=== PATIENT | female | born 1970 | race Caucasian/White ===

== ENCOUNTER 2022-06-09 17:58 | Emergency (ER) | payer MEDICARE, BC, SELFPAY ==
[2022-06-09] VITALS (7 sets, daily range): BP systolic 113–119; BP diastolic 69–71; PULSE 63–80; RESP 20; TEMP 37.2; O2SAT 98–100; BMI 23.5
--- NOTE | 2022-06-09 18:34 | ED_ITS ---
HPI - Nausea/Vomiting/Diarrhea General Chief complaint: Nausea/Vomiting Stated complaint: Vomiting and Weak - Crohn's Disease Time Seen by Provider: 06/09/22 18:16 History of Present Illness HPI Narrative: This 51-year-old female comes in reporting vomiting and nausea for the past several days. She has a history of Crohn's and has a ileostomy. She reports there is more liquid output into her ileostomy bag also during this time. She denies having any fevers. She does not feel that she is having a flare-up of her Crohn's disease but rather some kind of stomach flu. She does arrive with normal vital signs. She does not report any blood in the vomit or in her ileostomy bag. She states that she has had symptoms like this in the past and benefited from IV fluids and nausea medicine. Related Data Home Medications Medication Instructions Recorded Confirmed No Known Home Medications 06/09/22 06/09/22 Allergies Allergy/AdvReac Type Severity Reaction Status Date / Time No Known Drug Allergies Allergy Verified 06/09/22 18:25 Review of Systems Status of ROS: Reports: 10 or more systems reviewed and unremarkable except as noted in History and below Narrative: Constitutional: No fevers, no weight gain or loss. Eyes: No discharge. No vision changes. HENT: No congestion, no sore throat, no ear pain. Cardiovascular: No chest pain, no palpitations. Respiratory: No shortness of breath, no wheezes, no cough. Gastrointestinal: Mild abdominal pain. Nausea and vomiting. Genitourinary: No dysuria, no hematuria. Musculoskeletal: Normal range of motion. Skin: No rashes, no pruritis. Neurological: No dizziness, weakness, sensory change, speech change. Endo/Heme/Allergies: No bruising or bleeding. No polydipsia. Pysch: no suicidality, no anxiety, no insomnia. All other systems reviewed and are negative. PFSH PFSH Social History Smoking Status: Never smoker Do you use any of these nicotine containing products: None Second hand tobacco smoke exposure: No How often do you have a drink containing alcohol: monthly or less How many standard drinks containing alcohol do you have on a typical day: 1 or 2 How often do you have six or more drinks on one occasion: Never AUDIT-C Alcohol total score: 1 Non-prescribed substance use: denies use Exam Narrative: Exam Narrative: Constitutional: Well-developed, well-nourished, no acute distress. HEENT: Normocephalic, atraumatic. Neck: Normal range of motion. Nontender. Supple. Heart: Regular. No murmurs. Normal rate. Intact distal pulses. Lungs: Clear to auscultation. No chest discomfort. No wheezes, rhonchi, or rales. Abdomen: Normal bowel sounds. Mild tenderness. No rebound tenderness. Functioning ileostomy. Genitalia: Deferred. Back: No midline tenderness. Normal range of motion. Extremities: Normal range of motion. No injury. Skin: Intact. No rash. Warm. No erythema or pallor. Neurologic: No altered sensation. No weakness. Alert and oriented. Psychiatric: No suicidality. No anxiety or depression. No insomnia. Nursing notes and vitals signs are reviewed. Const: Vital Signs, click to edit/add: Vital Signs - 24 hr 06/09/22 18:22 06/09/22 19:22 06/09/22 19:30 Temperature 98.9 F Pulse Rate 63 63 Pulse Rate [Pulse Oximeter] 74 Respiratory Rate 20 Blood Pressure [Ri t Upper Arm] 119/69 Pulse Oximetry 98 98 99 Oxygen Delivery Me thod Room Air Course Vital Signs Vital signs: Initial Vital Signs Temperature 98.9 F 06/09/22 18:22 Temperature Source Temporal Artery Scan 06/09/22 18:22 Pulse Rate 74 06/09/22 18:22 Respiratory Rate 20 06/09/22 18:22 Blood Pressure 119/69 06/09/22 18:22 Blood Pressure Mean 85 06/09/22 18:22 Blood Pressure Position Semi-Fowlers 06/09/22 18:22 Pulse Oximetry 98 06/09/22 18:22 Oxygen Delivery Method 06/09/22 18:22 Vital Signs Temperature 98.9 F 06/09/22 18:22 Pulse Rate 74 06/09/22 18:22 Respiratory Rate 20 06/09/22 18:22 Blood Pressure 119/69 06/09/22 18:22 Pulse Oximetry 98 06/09/22 18:22 Oxygen Delivery Method 06/09/22 18:22 Temperature 98.9 F 06/09/22 18:22 Pulse Rate 63 06/09/22 19:30 Respiratory Rate 20 06/09/22 18:22 Blood Pressure 119/69 02/18/23 18:22 Pulse Oximetry 99 06/09/22 19:30 Oxygen Delivery Method 06/09/22 18:22 MDM - Nausea/Vomiting/Diarrhea MDM Narrative Medical decision making narrative: This patient states that she thinks she has some kind of viral gastroenteritis or some kind a toxin that she may have eaten. She has had symptoms like this in the past. She is not showing signs or symptoms that mandate CT imaging at this time. An IV was established where she received a L of normal saline and 4 mg of Zofran. This brought relief of her symptoms. She does not complain of any nausea but does feel like she has some reflux symptoms. She did then receive an additional dose of Zofran 4 mg intravenously along with Protonix 40 mg. Lab results returned with normal findings. Most likely this is a gastroenteritis. At the time of discharge the patient appears safe for outpatient management. The treatment plan is reviewed along with written and verbal return precautions. Reasons to return and the importance of close followup were also reviewed. Lab Data Labs: Lab Results 06/09/22 06/09/22 Range/Units 18:43 18:43 WBC 7.76 (4.50-11.00) K/uL RBC 4.44 (4.00-5.20) m/uL Hgb 13.4 (12.0-16.0) gm/dL Hct 40.0 (33.0-51.0) % MCV 90 (80-100) fL MCH 30 (26-34) pg MCHC 34 (32-36) gm/dL RDW Coeff of Rocio 13.6 (11.5-15.5) % Plt Count 309 (140-440) K/uL Neut % (Auto) 82.4 H (42.0-72.0) % Lymph % (Auto) 6.6 L (20-44) % [place] % (Auto) 10.8 (0.0-11.0) % Eos % (Auto) 0.0 (0.0-7.0) % Baso % (Auto) 0.1 (0.0-3.0) % Neut # (Auto) 6.40 (1.7-7.0) K/uL Lymph # (Auto) 0.50 L (0.90-2.90) K/uL [place] # (Auto) 0.80 (0.00-0.90) K/UL Eos # (Auto) 0.00 (0.00-0.50) K/uL Baso # (Auto) 0.01 (0.00-0.30) K/uL Sodium 136 (135-149) mmol/L Potassium 4.1 (3.6-5.1) mmol/L Chloride 106 (96-114) mmol/L Carbon Dioxide 25 (20-32) mmol/L BUN 17 (5-24) mg/dL Creatinine 0.7 (0.5-1.5) mg/dL Estimated Creat Clear 94.54 Estimated GFR 106 ml/min Glucose 108 (60-115) mg/dL Calcium 8.7 (8.4-10.6) mg/dL Discharge Plan Discharge Clinical Impression: Gastroenteritis Patient Disposition: Home, Self-Care Condition: Improved Additional Instructions: Take medication as needed and indicated. Increase diet as tolerated. Follow up with MD or return if worsening. Prescriptions: No Action No Known Home Medications Follow Up/Referrals: Nora Garcia DO [Primary Care Provider] - Stand Alone Forms: Emtrics Info Instructions
[2022-06-09 18:49] LABS: Basophils Absolute Auto 0.01 K/uL (0.00-0.30); Basophils Percent Auto 0.1 % (0.0-3.0); Hemoglobin* 13.4 gm/dL (12.0-16.0); Immature Granulocytes Abs Auto 0.01 K/uL (0.00-0.30); Immature Granulocytes Pct Auto 0.1 %; Lymphocytes Percent Auto 6.6 % (20-44); Mean Corpuscular HGB Conc 34 gm/dL (32-36); Mean Corpuscular Hemoglobin 30 pg (26-34); Mean Corpuscular Volume 90 fL (80-100); Monocytes Percent Auto 10.8 % (0.0-11.0); Neutrophils Percent Auto 82.4 % (42.0-72.0); Platelet Count* 309 K/uL (140-440); RDW Coefficient of Variation % 13.6 % (11.5-15.5); Red Blood Count 4.44 m/uL (4.00-5.20); White Blood Count* 7.76 K/uL (4.50-11.00)
[2022-06-09] MEDS: ONDANSETRON 2 MG/ML inj 4 MG IVP ×2 (18:51→19:55)
[2022-06-09] MEDS: 0.9 % SODIUM CHLORIDE 1000 ml 1,000 ML IV (18:51)
[2022-06-09 18:53] LABS: Slide Review Reflex No
[2022-06-09 19:07] LABS: Chloride* 106 mmol/L (96-114); Sodium* 136 mmol/L (135-149)
[2022-06-09 19:08] LABS: Potassium* 4.1 mmol/L (3.6-5.1)
[2022-06-09 19:10] LABS: Carbon Dioxide* 25 mmol/L (20-32); Creatinine* 0.7 mg/dL (0.5-1.5); Est. Creatinine Clearance* 94.54; Estimated Glomerular Filt Rate 106 ml/min
[2022-06-09 19:11] LABS: Blood Urea Nitrogen* 17 mg/dL (5-24); Calcium* 8.7 mg/dL (8.4-10.6); Glucose* 108 mg/dL (60-115)
[2022-06-09] MEDS: PANTOPRAZOLE SODIUM 40 MG INJ IVP (19:53)
== END 2022-06-09 20:08 | disposition home or self-care (01) ==
PROVIDERS: Emergency Provider Emergency Medicine Emergency Medical Services; PCP Family Medicine
DX: A09 Infectious gastroenteritis and colitis, unspecified (principal)
CPT/HCPCS: 36415; 80048; 85025; 96361; 96374; 96375; 99284; C9113; J2405; J7030

== ENCOUNTER 2023-02-06 08:57 | Outpatient (REF) | payer MEDICARE, BC, SELFPAY | END 2023-02-06 08:58 | disposition home or self-care (01) | LOC: NFLDLAB 08:57 | PROVIDERS: PCP Family Medicine | DX: Z00.00 Encounter for general adult medical examination without abnormal findings (principal) | CPT/HCPCS: 36415; 99001 ==